=== PATIENT | male | born 1985 | race Caucasian/White ===

== ENCOUNTER 2019-11-08 12:06 | Emergency (ER) | payer SELFPAY ==
[~2019-11-08] VITALS: Ht 180.3 cm; Wt 108.8 kg
[~2019-11-08 12:06] MED LIST: BUPR1FIL; DOXY100C2 PO
[2019-11-08] MEDS ORDERED: ONDANSETRON 4 MG (ZOFRAN) ORAL DISSOLVE TAB PO ONE (12:15)
[2019-11-08] MEDS ORDERED: PROM25TA14 PO (12:44)
--- NOTE | 2019-11-08 12:44 | ED General ---
General Stated Complaint: VOMITING Source of Information: Patient Exam Limitations: No Limitations History of Present Illness Date Seen by Provider: Nov 08, 2019 Time Seen by Provider: 12:41 Initial Comments To ER accompanied by a son and , all of whom have nausea vomiting and diarrhea after eating olre meat last night, the diarrhea is nonbloody and w ithout fevers or chills. He also has a sore throat. Timing/Duration: 1-2 Days Severity: Moderate Associated Systoms: Nausea/Vomiting Allergies and Home Medications Allergies Coded Allergies: No Known Drug Allergies (Unverified , 12/11/11) Home Medications Doxycycline Hyclate 100 Mg Capsule, 1 EACH PO BID Prescribed by: KOBY HUGHES on 12/11/112023 Patient Home Medication List Home Medication List Reviewed: Yes Review of Systems Review of Systems Constitutional: see HPI EENTM: see HPI Respiratory: no symptoms reported Cardiovascular: no symptoms reported Gastrointestinal: No abdominal pain; diarrhea, nausea, vomiting Genitourinary: no symptoms reported Musculoskeletal: no symptoms reported Skin: no symptoms reported Psychiatric/Neurological: No Symptoms Reported Hematologic/Lymphatic: No Symptoms Reported Past Hmaualh-Efxedy-Nqgdpz Hx Patient Social History Recent Foreign Travel: No Contact w/Someone Who Travel: No Physical Exam Vital Signs Capillary Refill : Height, Weight, BMI Height: '" Weight: lbs. oz. kg; BMI Method: General Appearance: No Apparent Distress, WD/WN Eyes: Bilateral Eye Normal Inspection, Bilateral Eye PERRL, Bilateral Eye EOMI HEENT: PERRL/EOMI, TMs Normal, Normal ENT Inspection, Pharynx Normal; No Pharyngeal Erythema, No Tonsillar Exudate, No Tonsillar Enlargement Neck: Full Range of Motion, Normal Inspection; No Lymphadenopathy (L), No Lymphadenopathy (R) Respiratory: No Accessory Muscle Use, No Respiratory Distress Cardiovascular: Regular Rate, Rhythm, Normal Peripheral Pulses Gastrointestinal: Non Tender, Soft Extremity: Normal Capillary Refill, Normal Inspection Neurologic/Psychiatric: Alert, Oriented x3 Skin: Normal Color, Warm/Dry Progress/Results/Core Measures Suspected Sepsis SIRS Temperature: Pulse: Respiratory Rate: Blood Pressure / Mean: Results/Orders My Orders Orders - LUPE NAVARRETE APRN Ondansetron Oral Dissolve Tab (Zofran (11/08/19 12:15) Medications Given in ED Current Medications Medications Dose Ordered Sig/Fredis Route Start Time Stop Time Status Last Admin Dose Admin Ondansetron HCl 8 mg ONCE ONCE PO 11/08/19 12:15 11/08/19 12:16 DC 11/08/19 12:33 8 MG Vital Signs/I&O Capillary Refill : Departure Impression Primary Impression: Gastroenteritis Disposition: 01 HOME, SELF-CARE Condition: Stable Departure-Patient Inst. Decision time for Depature: 12:43 Referrals: KANIKA PARKS DO (PCP/Family) Primary Care Physician Patient Instructions: [id number] Add. Discharge Instructions: 1. Return to ER for any worsening symptoms, continue with Gatorade Sprite and water, generally a clear liquid diet for the next 24 hours. Use the nausea medication as needed. Follow-up with your doctor next week for recheck. Scripts Promethazine HCl (Promethazine Tablet) 25 Mg Tablet 25 MG PO Q8H PRN for NAUSEA/VOMITING, #14 TAB 0 Refills Prov: LUPE NAVARRETE APRN 11/08/19 Work/School Note: Work Release Form Date Seen in the Emergency Department: Nov 08, 2019 Return to Work: Nov 10, 2019 LUPE NAVARRETE APRN Nov 08, 2019 12:44
[2019-11-08] MEDS ORDERED: PROMETHAZINE 25 MG (PHENERGAN) TAB PO ONE (13:45)
[2019-11-08 14:35] VITALS: BP 126/81
== END 2019-11-08 14:35 | disposition home or self-care (01) ==
LOC: EDUNIT# 12:06 → ER 12:08
DX: K52.9 Noninfective gastroenteritis and colitis, unspecified (principal)
CPT/HCPCS: 99283

== ENCOUNTER 2020-10-25 09:51 | Emergency (ER) | payer OTHER ==
[~2020-10-25] VITALS: Ht 180.3 cm; Wt 104.3 kg
[~2020-10-25 09:51] MED LIST changes: +PROM25TA14 PO
[2020-10-25] MEDS ORDERED: COLCHICINE 0.6 MG (COLCRYS) TABLET PO ONE ×2 (10:15→11:30)
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
[2020-10-25] MEDS ORDERED: IBUP-1780 PO ×2 (11:35→12:03)
[2020-10-25 12:00] VITALS: BP 148/91
== END 2020-10-25 12:05 | disposition home or self-care (01) ==
LOC: EDUNIT# 09:51 → ER 09:53
DX: M10.9 Gout, unspecified (principal); F17.210 Nicotine dependence, cigarettes, uncomplicated; F17.290 Nicotine dependence, other tobacco product, uncomplicated
CPT/HCPCS: 99283